=== PATIENT | male | born 1970 | race Caucasian/White ===

== ENCOUNTER 2018-11-09 21:20 | Emergency (ER) | payer SELFPAY ==
[~2018-11-09] VITALS: Ht 165.1 cm; Wt 74.6 kg
[2018-11-09 21:23] VITALS: Ht 165.1 cm; Wt 74.6 kg
[2018-11-09] MEDS ORDERED: FAMOTIDINE 20 MG TAB PO STA (21:50)
[2018-11-09] MEDS ORDERED: LIDOCAINE/MYLANTA 40 ML BTL PO STA (21:50)
[2018-11-10] MEDS ORDERED: FAMO-96 PO (01:16)
[2018-11-10] MEDS ORDERED: IBUP-1561 PO (01:16)
--- NOTE | 2018-11-10 01:18 | ERD ---
ER Documentation Chief Complaint Chief Complaint EPIGASTRIC PAIN X'S 2 MONTHS ROS All systems reviewed and are negative except as per history of present illness. Medications Home Meds Active Scripts Famotidine* (Pepcid*) 20 Mg Tablet, 20 MG PO BID for acid reflux, #30 TAB Prov:WAYLON GILMAN DO 11/10/18 Ibuprofen* (Motrin*) 400 Mg Tab, 400 MG PO Q6H PRN for PAIN AND OR ELEVATED TEMP, #30 TAB Prov:WAYLON GILMAN DO 11/10/18 Allergies Allergies: Coded Allergies: No Known Allergy (Unverified , 11/09/18) PMhx/Soc Hx Alcohol Use: No Hx Substance Use: No Hx Tobacco Use: No Smoking Status: Never smoker Physical Exam Vitals Vital Signs Date Temp Pulse Resp B/P (MAP) Pulse Ox O2 O2 Flow FiO2 Time Delivery Rate 11/09/18 97.3 57 18 180/94 99 21:23 (122) Physical Exam Const: No acute distress Head: Atraumatic Eyes: Normal Conjunctiva ENT: Normal External Ears, Nose and Mouth. Neck: Full range of motion. No meningismus. Resp: Clear to auscultation bilaterally Cardio: Regular rate and rhythm, no murmurs Abd: Soft, non tender, non distended. Normal bowel sounds Skin: No petechiae or rashes Back: No midline or flank tenderness Ext: No cyanosis, or edema Neur: Awake and alert Psych: Normal Mood and Affect Result Diagram: 11/09/18215711/09/182157 Results 24 hrs Laboratory Tests Test 11/09/18 21:58 White Blood Count 10.5 10^3/ul Red Blood Count 5.38 10^6/ul Hemoglobin 15.0 g/dl Hematocrit 45.9 % Mean Corpuscular Volume 85.3 fl Mean Corpuscular Hemoglobin 27.9 pg Mean Corpuscular Hemoglobin Concent 32.7 g/dl Red Cell Distribution Width 13.3 % Platelet Count 467 10^3/UL Mean Platelet Volume 9.4 fl Immature Granulocytes % 0.500 % Neutrophils % 58.9 % Lymphocytes % 29.4 % Monocytes % 8.7 % Eosinophils % 1.8 % Basophils % 0.7 % Nucleated Red Blood Cells % 0.0 /100WBC Immature Granulocytes # 0.050 10^3/ul Neutrophils # 6.2 10^3/ul Lymphocytes # 3.1 10^3/ul Monocytes # 0.9 10^3/ul Eosinophils # 0.2 10^3/ul Basophils # 0.1 10^3/ul Nucleated Red Blood Cells # 0.0 10^3/ul Urine Color YELLOW Urine Clarity CLEAR Urine pH 5.0 Urine Specific Ebro 1.025 Urine Ketones NEGATIVE mg/dL Urine Nitrite NEGATIVE mg/dL Urine Bilirubin NEGATIVE mg/dL Urine Urobilinogen 2+ mg/dL Urine Leukocyte Esterase NEGATIVE Dontae/ul Urine Microscopic RBC 10 /HPF Urine Microscopic WBC 0 /HPF Urine Mucus MODERATE /HPF Urine Hemoglobin 1+ mg/dL Urine Glucose NEGATIVE mg/dL Urine Total Protein NEGATIVE mg/dl Sodium Level 143 mmol/L Potassium Level 3.5 mmol/L Chloride Level 106 mmol/L Carbon Dioxide Level 27 mmol/L Anion Gap 10 Blood Urea Nitrogen 15 mg/dl Creatinine 1.05 mg/dl Est Glomerular Filtrat Rate mL/min > 60 mL/min Glucose Level 114 mg/dl Calcium Level 9.2 mg/dl Total Bilirubin 0.6 mg/dl Direct Bilirubin 0.00 mg/dl Indirect Bilirubin 0.6 mg/dl Aspartate Amino Transf (AST/SGOT) 25 IU/L Alanine Aminotransferase (ALT/SGPT) 18 IU/L Alkaline Phosphatase 72 IU/L Total Protein 8.3 g/dl Albumin 4.3 g/dl Globulin 4.00 g/dl Albumin/Globulin Ratio 1.07 Lipase 125 U/L Current Medications Medications Dose Sig/Peggy Start Time Status Last (Trade) Ordered Route PRN Stop Time Admin Dose Reason Admin Famotidine 20 mg ONCE STAT 11/09/18 DC 11/09/18 (Pepcid) PO 21:50 11/09/18 22:00 21:53 40 ml ONCE STAT 11/09/18 DC 11/09/18 Miscellaneous PO 21:50 11/09/18 22:01 Medication 21:53 (Gi Cocktail (2)) Departure Diagnosis: Primary Impression: Epigastric pain Additional Impression: Gallstones Condition: Fair Patient Instructions: Treating Gallstones, Gerd (Adult) Referrals: [facility] YOU HAVE RECEIVED A MEDICAL SCREENING EXAM AND THE RESULTS INDICATE THAT YOU DO NOT HAVE A CONDITION THAT REQUIRES URGENT TREATMENT IN THE EMERGENCY DEPARTMENT. FURTHER EVALUATION AND TREATMENT OF YOUR CONDITION CAN WAIT UNTIL YOU ARE SEEN IN YOUR DOCTORS OFFICE WITHIN THE NEXT 1-2 DAYS. IT IS YOUR RESPONSIBILITY TO MAKE AN APPOINTMENT FOR FOLOW-UP CARE. IF YOU HAVE A PRIMARY DOCTOR --you should call your primary doctor and schedule an appointment IF YOU DO NOT HAVE A PRIMARY DOCTOR YOU CAN CALL OUR PHYSICIAN REFERRAL HOTLINE AT IF YOU CAN NOT AFFORD TO SEE A PHYSICIAN YOU CAN CHOSE FROM THE FOLLOWING [facility] [address] [facility] [address] [facility] [facility] [address] [facility] [address] [facility] [facility] [address] [facility]. [facility] [address] Additional Instructions: Call your primary care doctor TOMORROW for an appointment during the next 1-2 days.See the doctor sooner or return here if your condition worsens before your appointment time. Get referal from primary physician for general surgery for gallstones found on CT scan. WAYLON GILMAN DO Nov 10, 2018 01:18
[2018-11-10 01:30] VITALS: BP 147/76; PULSE 51; RESP 18
== END 2018-11-10 01:30 | disposition home or self-care (01) ==
LOC: FTE 21:20
DX: K80.20 Calculus of gallbladder without cholecystitis without obstruction (principal)
CPT/HCPCS: 36415; 74176; 80053; 81001; 83690; 85025; 93005